=== PATIENT | female | born 1955 | race Caucasian/White ===

== ENCOUNTER 2016-10-29 18:17 | Emergency (ER) | payer OTHER ==
--- NOTE | 2016-10-29 19:06 | DIAGNOSTIC IMAGING REPORT ---
PROCEDURE: XR KNEE 4 VIEWS - RIGHT INDICATION: TRAUMA/INJURY TECHNIQUE: Four views. COMPARISON: None. FINDINGS: Moderate degenerative changes in joint space narrowing of the medial compartment. Osseous structures and joint spaces are otherwise normal. No evidence of effusion. IMPRESSION: 1. Moderate degenerative changes in joint space narrowing of the medial compartment. 2. Otherwise negative right knee.
--- NOTE | 2016-10-29 19:27 | ED NURSING NOTES ---
Clinical Report - Nurses [facility] [address] [place] [address] 10/29/2016 18:17 Patient: ABIGAIL CHERRY TRIAGE Triage time 18:Oct 29 2016. Chief Complaint: INJURY TO RIGHT KNEE. INJURY TO THE RIGHT KNEE. Alert. No acute distress. SEPSIS SCREEN: Sepsis Screen. Negative (no infection suspected/documented). --18:34 Rashi Gupta R.N. 18:27 10/29/16. BP: 128/79. HR: 86. RR: 17. O2 saturation: 97%. Temp: 98.3 F. Pain level now: 04/01. --18:34 Rashi Gupta R.N. Weight: 98.8 kg stated. Height/Length: 62.5 inches Per Patient. BMI: 39.2. --18:31 Rashi Gupta R.N. Medications HCTZ 50mg day. Lisinopril Oral 20 mg, daily. --18:30 Rashi Gupta R.N. TraZODone HCl Oral. --18:31 Rashi Gupta R.N. Medication/allergy information source: the patient. --18:34 Rashi Gupta R.N. Allergies Sensitivity to "pain pills" . --18:30 Rashi Gupta R.N. History Arrived by private vehicle. Historian: patient. Accompanied by friend. This occurred (829 today). Mechanism of injury: [place] going up first step "my friend heard a pop" hx of right knee pain for a year, pcp aware, was seen here for same). 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 PAST MEDICAL HX: Tetanus status: up-to-date. Immunizations: up-to-date. The patient has had a hysterectomy. SOCIAL HX: Smoker- current status unknown. Alcohol use; consumes beer occasionally. No drug use. No infectious disease exposure. ABUSE ASSESSMENT: No report of abuse. SELF HARM ASSESSMENT: A self harm assessment was performed. The patient answered "no" to the question "Have you recently felt down, depressed, or hopeless?", "Have you noticed less interest or pleasure in doing things?", "Do you have thoughts of harming or killing yourself?", "Are you here because you tried to hurt yourself?", "Have you ever tried to hurt yourself before today?", "Have you recently had thoughts about harming or killing others?" and "Do you have any dangerous items in your possession?". FALL RISK ASSESSMENT: Fall risk assessment completed. No fall risk identified. NUTRITIONAL RISK ASSESSMENT: The nutritional risk assessment revealed no deficiencies. FUNCTIONAL ASSESSMENT: Functional assessment: no impairments noted. LEARNING NEEDS ASSESSMENT: The learning needs assessment revealed no barriers. SKIN INTEGRITY ASSESSMENT: Skin integrity risk assessment completed. No skin integrity risk identified. --18:34 Rashi Gupta R.N. PROBLEMS: Sprain. Cancer. Near Syncope. Skin Cancer. Obesity. Thyroid Disease. Tetanus Status. Immunizations. Hypertension. TIA - Transient Ischemic Attack. CVA - Cerebrovascular Accident. Colitis. --18:31 Rashi Gupta R.N. ADDITIONAL SURGERIES: Hysterectomy. Tubal Ligation. --18:31 Rashi Gupta R.N. Interventions ID band on patient. To treatment room. --18:34 Rashi Gupta R.N. PHYSICAL ASSESSMENT To room via wheelchair. Patient gowned. GENERAL / NEURO / PSYCH: Oriented X 4. Alert. Appears in no acute distress. EXTREMITIES: Capillary refill is less than 2 seconds in the extremities. Extremity pulses are within normal limits. Pain with weight bearing. Neuro-vascular status intact to the extremity. Right knee: tenderness. SKIN: Skin intact. Skin is warm and dry. --18:35 Rashi Gupta R.N. NURSING PROGRESS NOTES Neuro-vascular extremity check. Patient gowned. Reassurance given. Patient identifiers checked. Call light placed in reach. Side rails up x 1. Bed placed in lowest position. Brakes of bed on. Patient waiting for evaluation. --18:35 Rashi Gupta R.N. 18:47 10/29/2016 Toradol (Ketorolac Tromethamine) IM 60 mg given. Given in the right gluteus jalen. Allergies verified and confirmed 5 rights. --18:57 Rashi Gupta R.N. Patient waiting for radiology results. --18:58 Rashi Gupta R.N. 19:28 10/29/2016 Hydrocodone-APAP (Hydrocodone-Acetaminophen) PO 5/325 mg Tablets 1 tab given. Allergies verified, confirmed 5 rights and sedative warning given to the patient. --19:41 Vane Phan R.N. <<STRICKEN ENTRY-- Extremities: Neuro-vascular status intact to the extremities. The patient is calm. Overall patient status is improved. GENERAL / NEURO / PSYCH: The patient reports pain that is generalized across the abdomen is still present but improving. Oriented X 4. RESPIRATORY: No respiratory distress. CVS: Capillary refill less than 2 seconds. SKIN: Skin is warm and dry. --19:55 Sheriff Lacey R.N. --END STRIKE>> Charted On Wrong Patient --19:55 Sheriff Lacey R.N. DISPOSITION / DISCHARGE Condition at departure: improved. No learning barriers present. Reviewed medication(s) side effects, precautions, dosing and course information. Prescription(s) given to the patient. Patient verbalized understanding. Written instructions provided in Ukrainian. The patient was discharged home and accompanied by set key driver. She left the Emergency Department ambulatory, via private vehicle and (using a cane). Mutual Fund Sales Agent driving. --20:03 Vane Phan R.N. 20:02 10/29/16. BP: 131/89. HR: 90. RR: 20. O2 saturation: 97%. Temp: deferred. Pain level now: 08/02. 18:27 10/29/16. BP: 128/79. HR: 86. RR: 17. O2 saturation: 97%. Temp: 98.3 F. Pain level now: 04/01. --20:03 Vane Phan R.N. Locked/Released at 10/29/2016 20:04 by Vane Phan R.N.
--- NOTE | 2016-10-29 19:27 | ED CLINICAL REPORT ---
Clinical Report - Physicians/Mid Levels [facility] [address] [place] [address] 10/29/2016 18:17 Patient: ABIGAIL CHERRY Time Seen: 18:22; initial patient contact. Arrived- By private vehicle. Historian- patient. HISTORY OF PRESENT ILLNESS Chief Complaint: Injury to right knee. The injury happened today. Occurred on a street. The patient sustained a twisting injury. Patient is experiencing moderate pain. Patient denies injury to the head or neck. REVIEW OF SYSTEMS The patient complains of pain on weight bearing. She has had swelling. No tingling, weakness, numbness or skin laceration. All systems otherwise negative, except as recorded above. PAST HISTORY ( Sprain. Cancer. Near Syncope. Skin Cancer. Obesity. Thyroid Disease. Hypertension. TIA - Transient Ischemic Attack. CVA - Cerebrovascular Accident. Colitis. SURGERIES: Hysterectomy. Tubal Ligation). SOCIAL HISTORY Smoker - current status unknown. Occasional alcohol use. No drug use. ADDITIONAL NOTES The nursing notes have been reviewed. PHYSICAL EXAM Vital Signs: 10/29/2016 18:27 BP: 128/79. HR: 86. RR: 17. O2 saturation: 97%. Temp: 98.3 F. Pain level now: 10/10. Have been reviewed as normal. Skin: Skin warm. Normal skin color. Extremities: Right knee: moderate tenderness and mild swelling located in the medial joint line. Limited ROM secondary to pain (diminished flexion and extension). Small joint effusion present. Neurovascular intact distally. No ligamentous laxity of the anterior cruciate, posterior cruciate, medial collateral or lateral collateral. No erythema, ecchymosis or deformity. Extremities otherwise negative. Neuro, Vascular and Tendons: Vascular status intact. Sensation intact. Motor intact. Tendon function intact. Gait: Limping gait. Neuro: Oriented X 3. No motor deficit. LABS, X-RAYS, AND EKG Rt Knee X-ray: No fracture. Moderate degenerative joint disease (Medial compartment). Views: AP, lateral and oblique. Technique: good. The X-rays were independently viewed by me and interpreted contemporaneously by me. Prior films were not available for comparison. PROGRESS AND PROCEDURES Disposition: Discharged home in good and improved condition. Condition: good. CLINICAL IMPRESSION Right knee effusion. INSTRUCTIONS Apply ice for 20 minutes five times a day until better. Don't apply ice directly to skin. Your Current Medications: CONTINUE TAKING THE FOLLOWING MEDICATIONS: HCTZ 50mg day*. Lisinopril Oral : 20 mg daily. TraZODone HCl Oral. Prescription Medications: Hydrocodone/APAP 5mg / 325mg: take 1 orally every 6 hours as needed for pain. Dispense fifteen (15). No refill. Diclofenac 50 mg tablets: take 1 tablet orally every 8 hours as needed for pain or stiffness. Dispense thirty (30). No refill. Follow-up: Follow up with your doctor in about two days. Call for an appointment. Blood pressure screening was not performed during this visit because the patient has an active diagnosis of hypertension. (Electronically signed by Demian Villarreal Dr. 10/29/2016 19:29)
--- NOTE | 2016-10-29 19:27 | ED CLINICAL REPORT ---
Clinical Report - Physicians/Mid Levels [facility] [address] [place] [address] 10/29/2016 18:17 Patient: ABIGAIL CHERRY Time Seen: 18:22; initial patient contact. Arrived- By private vehicle. Historian- patient. HISTORY OF PRESENT ILLNESS Chief Complaint: Injury to right knee. The injury happened today. Occurred on a street. The patient sustained a twisting injury. Patient is experiencing moderate pain. Patient denies injury to the head or neck. REVIEW OF SYSTEMS The patient complains of pain on weight bearing. She has had swelling. No tingling, weakness, numbness or skin laceration. All systems otherwise negative, except as recorded above. PAST HISTORY ( Sprain. Cancer. Near Syncope. Skin Cancer. Obesity. Thyroid Disease. Hypertension. TIA - Transient Ischemic Attack. CVA - Cerebrovascular Accident. Colitis. SURGERIES: Hysterectomy. Tubal Ligation). SOCIAL HISTORY Smoker - current status unknown. Occasional alcohol use. No drug use. ADDITIONAL NOTES The nursing notes have been reviewed. PHYSICAL EXAM Vital Signs: 10/29/2016 18:27 BP: 128/79. HR: 86. RR: 17. O2 saturation: 97%. Temp: 98.3 F. Pain level now: 10/10. Have been reviewed as normal. Skin: Skin warm. Normal skin color. Extremities: Right knee: moderate tenderness and mild swelling located in the medial joint line. Limited ROM secondary to pain (diminished flexion and extension). Small joint effusion present. Neurovascular intact distally. No ligamentous laxity of the anterior cruciate, posterior cruciate, medial collateral or lateral collateral. No erythema, ecchymosis or deformity. Extremities otherwise negative. Neuro, Vascular and Tendons: Vascular status intact. Sensation intact. Motor intact. Tendon function intact. Gait: Limping gait. Neuro: Oriented X 3. No motor deficit. LABS, X-RAYS, AND EKG Rt Knee X-ray: No fracture. Moderate degenerative joint disease (Medial compartment). Views: AP, lateral and oblique. Technique: good. The X-rays were independently viewed by me and interpreted contemporaneously by me. Prior films were not available for comparison. PROGRESS AND PROCEDURES Disposition: Discharged home in good and improved condition. Condition: good. CLINICAL IMPRESSION Right knee effusion. INSTRUCTIONS Apply ice for 20 minutes five times a day until better. Don't apply ice directly to skin. Your Current Medications: CONTINUE TAKING THE FOLLOWING MEDICATIONS: HCTZ 50mg day*. Lisinopril Oral : 20 mg daily. TraZODone HCl Oral. Prescription Medications: Hydrocodone/APAP 5mg / 325mg: take 1 orally every 6 hours as needed for pain. Dispense fifteen (15). No refill. Diclofenac 50 mg tablets: take 1 tablet orally every 8 hours as needed for pain or stiffness. Dispense thirty (30). No refill. Follow-up: Follow up with your doctor in about two days. Call for an appointment. Blood pressure screening was not performed during this visit because the patient has an active diagnosis of hypertension. (Electronically signed by Demian Villarreal Dr. 10/29/2016 19:29)
--- NOTE | 2016-10-29 19:27 | ED NURSING NOTES ---
Clinical Report - Nurses [facility] [address] [place] [address] 10/29/2016 18:17 Patient: ABIGAIL CHERRY TRIAGE Triage time 18:Oct 29 2016. Chief Complaint: INJURY TO RIGHT KNEE. INJURY TO THE RIGHT KNEE. Alert. No acute distress. SEPSIS SCREEN: Sepsis Screen. Negative (no infection suspected/documented). --18:34 Rashi Gupta R.N. 18:27 10/29/16. BP: 128/79. HR: 86. RR: 17. O2 saturation: 97%. Temp: 98.3 F. Pain level now: 04/01. --18:34 Rashi Gupta R.N. Weight: 98.8 kg stated. Height/Length: 62.5 inches Per Patient. BMI: 39.2. --18:31 Rashi Gupta R.N. Medications HCTZ 50mg day. Lisinopril Oral 20 mg, daily. --18:30 Rashi Gupta R.N. TraZODone HCl Oral. --18:31 Rashi Gupta R.N. Medication/allergy information source: the patient. --18:34 Rashi Gupta R.N. Allergies Sensitivity to "pain pills" . --18:30 Rashi Gupta R.N. History Arrived by private vehicle. Historian: patient. Accompanied by friend. This occurred (829 today). Mechanism of injury: [place] going up first step "my friend heard a pop" hx of right knee pain for a year, pcp aware, was seen here for same). 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 PAST MEDICAL HX: Tetanus status: up-to-date. Immunizations: up-to-date. The patient has had a hysterectomy. SOCIAL HX: Smoker- current status unknown. Alcohol use; consumes beer occasionally. No drug use. No infectious disease exposure. ABUSE ASSESSMENT: No report of abuse. SELF HARM ASSESSMENT: A self harm assessment was performed. The patient answered "no" to the question "Have you recently felt down, depressed, or hopeless?", "Have you noticed less interest or pleasure in doing things?", "Do you have thoughts of harming or killing yourself?", "Are you here because you tried to hurt yourself?", "Have you ever tried to hurt yourself before today?", "Have you recently had thoughts about harming or killing others?" and "Do you have any dangerous items in your possession?". FALL RISK ASSESSMENT: Fall risk assessment completed. No fall risk identified. NUTRITIONAL RISK ASSESSMENT: The nutritional risk assessment revealed no deficiencies. FUNCTIONAL ASSESSMENT: Functional assessment: no impairments noted. LEARNING NEEDS ASSESSMENT: The learning needs assessment revealed no barriers. SKIN INTEGRITY ASSESSMENT: Skin integrity risk assessment completed. No skin integrity risk identified. --18:34 Rashi Gupta R.N. PROBLEMS: Sprain. Cancer. Near Syncope. Skin Cancer. Obesity. Thyroid Disease. Tetanus Status. Immunizations. Hypertension. TIA - Transient Ischemic Attack. CVA - Cerebrovascular Accident. Colitis. --18:31 Rashi Gupta R.N. ADDITIONAL SURGERIES: Hysterectomy. Tubal Ligation. --18:31 Rashi Gupta R.N. Interventions ID band on patient. To treatment room. --18:34 Rashi Gupta R.N. PHYSICAL ASSESSMENT To room via wheelchair. Patient gowned. GENERAL / NEURO / PSYCH: Oriented X 4. Alert. Appears in no acute distress. EXTREMITIES: Capillary refill is less than 2 seconds in the extremities. Extremity pulses are within normal limits. Pain with weight bearing. Neuro-vascular status intact to the extremity. Right knee: tenderness. SKIN: Skin intact. Skin is warm and dry. --18:35 Rashi Gupta R.N. NURSING PROGRESS NOTES Neuro-vascular extremity check. Patient gowned. Reassurance given. Patient identifiers checked. Call light placed in reach. Side rails up x 1. Bed placed in lowest position. Brakes of bed on. Patient waiting for evaluation. --18:35 Rashi Gupta R.N. 18:47 10/29/2016 Toradol (Ketorolac Tromethamine) IM 60 mg given. Given in the right gluteus jalen. Allergies verified and confirmed 5 rights. --18:57 Rashi Gupta R.N. Patient waiting for radiology results. --18:58 Rashi Gupta R.N. 19:28 10/29/2016 Hydrocodone-APAP (Hydrocodone-Acetaminophen) PO 5/325 mg Tablets 1 tab given. Allergies verified, confirmed 5 rights and sedative warning given to the patient. --19:41 Vane Phan R.N. <<STRICKEN ENTRY-- Extremities: Neuro-vascular status intact to the extremities. The patient is calm. Overall patient status is improved. GENERAL / NEURO / PSYCH: The patient reports pain that is generalized across the abdomen is still present but improving. Oriented X 4. RESPIRATORY: No respiratory distress. CVS: Capillary refill less than 2 seconds. SKIN: Skin is warm and dry. --19:55 Sheriff Lacey R.N. --END STRIKE>> Charted On Wrong Patient --19:55 Sheriff Lacey R.N. DISPOSITION / DISCHARGE Condition at departure: improved. No learning barriers present. Reviewed medication(s) side effects, precautions, dosing and course information. Prescription(s) given to the patient. Patient verbalized understanding. Written instructions provided in Arabic. The patient was discharged home and accompanied by risk modeler. She left the Emergency Department ambulatory, via private vehicle and (using a cane). Director Of Revenue Cycle Management driving. --20:03 Vane Phan R.N. 20:02 10/29/16. BP: 131/89. HR: 90. RR: 20. O2 saturation: 97%. Temp: deferred. Pain level now: 08/02. 18:27 10/29/16. BP: 128/79. HR: 86. RR: 17. O2 saturation: 97%. Temp: 98.3 F. Pain level now: 04/01. --20:03 Vane Phan R.N. Locked/Released at 10/29/2016 20:04 by Vane Phan R.N.
--- NOTE | 2016-10-29 19:27 | ED ORDER SUMMARY ---
..... Patient: ABIGAIL CHERRY OrderSheet [facility] VisitID: [id number] [address] [place] [address] 61y, F Registration Date/Time: 10/29/2016 ORDER SHEET Weight: 98.8 kg (stated) Allergies: Sensitivity to "pain pills" GENERAL ORDERS: Knee 4V Right Urgent (18:40 10/29/2016 Manuel Clayton) (Ack 18:45 Rosanna) (18:58 KPage-Kuchan R.N.) MEDICATION ORDERS: Toradol IM 60 mg (NOW) (18:40 10/29/2016 Manuel Clayton) (Ack 18:40 KPage-Kuchan R.N.) (18:57 KPage-Kuchan R.N.) Hydrocodone-APAP PO 5/325 mg (NOW, HIGH ALERT MEDICATION) (19:25 10/29/2016 Manuel Clayton) (Ack 19:27 SRoberts R.N.) (19:41 SRoberts R.N.) IV FLUIDS: ORDER SHEET NOTES: [Electronically signed by Demian Villarreal Dr. (19:29 10/29/2016)] [Electronically signed by Vane Phan R.N. (20:04 10/29/2016)] [Electronically locked/signed by Vane Phan R.N. (20:04 10/29/2016)]
--- NOTE | 2016-10-29 19:27 | ED ORDER SUMMARY ---
..... Patient: ABIGAIL CHERRY OrderSheet [facility] VisitID: [id number] [address] [place] [address] 61y, F Registration Date/Time: 10/29/2016 ORDER SHEET Weight: 98.8 kg (stated) Allergies: Sensitivity to "pain pills" GENERAL ORDERS: Knee 4V Right Urgent (18:40 10/29/2016 Manuel Clayton) (Ack 18:45 Rosanna) (18:58 KPage-Kuchan R.N.) MEDICATION ORDERS: Toradol IM 60 mg (NOW) (18:40 10/29/2016 Manuel Clayton) (Ack 18:40 KPage-Kuchan R.N.) (18:57 KPage-Kuchan R.N.) Hydrocodone-APAP PO 5/325 mg (NOW, HIGH ALERT MEDICATION) (19:25 10/29/2016 Manuel Clayton) (Ack 19:27 SRoberts R.N.) (19:41 SRoberts R.N.) IV FLUIDS: ORDER SHEET NOTES: [Electronically signed by Demian Villarreal Dr. (19:29 10/29/2016)] [Electronically signed by Vane Phan R.N. (20:04 10/29/2016)] [Electronically locked/signed by Vane Phan R.N. (20:04 10/29/2016)]
--- NOTE | 2016-10-29 20:04 | ED MAR SUMMARY ---
..... Medication Administration Record [facility] [address] [place] [address] Patient: ABIGAIL CHERRY Visit ID: [id number] 61y, F Weight: 98.8 kg Height/Length: 62.5 in BMI: 39.2 ALLERGIES: Sensitivity to "pain pills" Given 18:47 10/29/2016 Rashi Gupta RBrenda Medication Administered: TORADOL [IM] (KETOROLAC TROMETHAMINE), Dose: 60 mg IM. Medication Ordered: Toradol IM 60 mg (NOW). Given 19:28 10/29/2016 Vane Phan RBrenda Medication Administered: HYDROCODONE-APAP [PO] (HYDROCODONE-ACETAMINOPHEN), Dose: 1 tab 5/325 mg Tablets PO. Medication Ordered: Hydrocodone-APAP PO 5/325 mg (NOW, HIGH ALERT MEDICATION).
--- NOTE | 2016-10-29 20:04 | ED MED RECONCILIATION SUMMARY ---
Patient: ABIGAIL CHERRY Medication Reconciliation Report [facility]erg[facility] VisitID: [id number] [address] [place] [address] 61y, F Registration Date/Time: 10/29/2016 Weight: 98.8 kg Height/Length: 60 in. BMI: 39.2 ALLERGIES: Sensitivity to "pain pills" The patient's Home Medications are listed below: CONTINUE TAKING THE FOLLOWING MEDICATIONS: HCTZ 50mg day Lisinopril Oral 20 mg, daily TraZODone HCl Oral The source(s) of the original Home Medication information: patient The following Medications were given to the patient in the Emergency Department: Toradol [IM] IM 60 mg, administered: 10/29/2016 6:47:00 PM Hydrocodone-APAP [PO] PO 1 tab, administered: 10/29/2016 7:28:00 PM The following Medications were prescribed to the patient: Hydrocodone/APAP 5mg / 325mg: take 1 orally every 6 hours as needed for pain. Dispense fifteen (15). No refill. -- Demian Villarreal Dr. Diclofenac 50 mg tablets: take 1 tablet orally every 8 hours as needed for pain or stiffness. Dispense thirty (30). No refill. -- Demian Villarreal Dr.
--- NOTE | 2016-10-29 20:04 | ED MAR SUMMARY ---
..... Medication Administration Record [facility] [address] [place] [address] Patient: ABIGAIL CHERRY Visit ID: [id number] 61y, F Weight: 98.8 kg Height/Length: 62.5 in BMI: 39.2 ALLERGIES: Sensitivity to "pain pills" Given 18:47 10/29/2016 Rashi Gupta RBrenda Medication Administered: TORADOL [IM] (KETOROLAC TROMETHAMINE), Dose: 60 mg IM. Medication Ordered: Toradol IM 60 mg (NOW). Given 19:28 10/29/2016 Vane Phan RBrenda Medication Administered: HYDROCODONE-APAP [PO] (HYDROCODONE-ACETAMINOPHEN), Dose: 1 tab 5/325 mg Tablets PO. Medication Ordered: Hydrocodone-APAP PO 5/325 mg (NOW, HIGH ALERT MEDICATION).
--- NOTE | 2016-10-29 20:04 | ED MED RECONCILIATION SUMMARY ---
Patient: ABIGAIL CHERRY Medication Reconciliation Report [facility] VisitID: [id number] [address] [place] [address] 61y, F Registration Date/Time: 10/29/2016 Weight: 98.8 kg Height/Length: 60 in. BMI: 39.2 ALLERGIES: Sensitivity to "pain pills" The patient's Home Medications are listed below: CONTINUE TAKING THE FOLLOWING MEDICATIONS: HCTZ 50mg day Lisinopril Oral 20 mg, daily TraZODone HCl Oral The source(s) of the original Home Medication information: patient The following Medications were given to the patient in the Emergency Department: Toradol [IM] IM 60 mg, administered: 10/29/2016 6:47:00 PM Hydrocodone-APAP [PO] PO 1 tab, administered: 10/29/2016 7:28:00 PM The following Medications were prescribed to the patient: Hydrocodone/APAP 5mg / 325mg: take 1 orally every 6 hours as needed for pain. Dispense fifteen (15). No refill. -- Demian Villarreal Dr. Diclofenac 50 mg tablets: take 1 tablet orally every 8 hours as needed for pain or stiffness. Dispense thirty (30). No refill. -- Demian Villarreal Dr.
--- NOTE | 2016-10-29 20:04 | ED DISCHARGE INSTRUCTIONS ---
Patient: ABIGAIL CHERRY General Instructions [facility] VisitID: [id number] [place] [address] 61y, F Registration Date/Time: 10/29/2016 Right knee effusion. INSTRUCTIONS Apply ice for 20 minutes five times a day until better. Don't apply ice directly to skin. Your Current Medications: CONTINUE TAKING THE FOLLOWING MEDICATIONS: HCTZ 50mg day*. Lisinopril Oral : 20 mg daily. TraZODone HCl Oral. Prescription Medications: Hydrocodone/APAP 5mg / 325mg: take 1 orally every 6 hours as needed for pain. Dispense fifteen (15). No refill. Diclofenac 50 mg tablets: take 1 tablet orally every 8 hours as needed for pain or stiffness. Dispense thirty (30). No refill. Follow-up: Follow up with your doctor in about two days. Call for an appointment. Blood pressure screening was not performed during this visit because the patient has an active diagnosis of hypertension. ADDITIONAL INFORMATION Knee Pain, Possible Torn Meniscus Themeniscusis a tough cartilage pad that cushions the inside of the knee joint. It serves as a shock absorber and spreads the weight of your body evenly across the knee joint. This prevents excess wear and tear to the bones of that joint. The most common causes of meniscal tears are due to injury (especially related to sports) and degenerative disease (as occurs with aging). A meniscus tear commonly occurs during a twisting injury when the knee is bent. This causes pain, swelling, reduced movement of the knee and difficulty walking. There may be popping, clicking, joint locking or inability to completely straighten the knee. Ligaments of the knee may also be injured. Initial diagnosis of a torn meniscus is by physical exam and x-rays. In the case of an acute injury, the knee may be too painful to examine fully. A more accurate exam can be performed after the initial swelling goes down. An MRI (magnetic image scan) may be ordered to make a final diagnosis. Initial treatment of a suspected meniscal injury is with ice and rest and preventing movement of the knee. A splint or Velcro knee immobilizer may be applied to protect the joint. Depending on the severity of the injury, surgery may be required. A cartilage injury may take 4-12 weeks to heal depending on the severity. Home Care: Stay off the injured leg as much as possible until you can walk on it without pain. If you have a lot of pain with walking, crutches or a walker may be prescribed. (These can be rented or purchased at many pharmacies and surgical or orthopedic supply stores). Follow your doctor's advice regarding when to begin bearing weight on that leg. Keep your leg elevated to reduce pain and swelling. When sleeping, place a pillow under the injured leg. When sitting, support the injured leg so it is level with your waist. This is very important during the first 48 hours. Apply an ice pack (ice cubes in a plastic bag, wrapped in a towel) over the injured area for 20 minutes every 1-2 hours the first day. You can place the ice pack directly over the splint. If a Velcro knee immobilizer was applied, you can open this to apply the ice pack directly to the knee. Continue with ice packs 3-4 times a day for the next two days, then as needed for the relief of pain and swelling. You may use acetaminophen (Tylenol) or ibuprofen (Motrin, Advil) to control pain, unless another pain medicine was prescribed. [NOTE: If you have chronic liver or kidney disease or ever had a stomach ulcer, talk with your doctor before using these medicines.] If you were given a splint, keep it completely dry at all times. Bathe with your splint out of the water, protected with a large plastic bag, rubber-banded at the top end. If a fiberglass splint gets wet, you can dry it with a hair-dryer. If you have a Velcro knee immobilizer, you can remove this to bathe, unless told otherwise. Check with your doctor before returning to sports or full work duties. Follow Up with your doctor, or as advised, within 1-2 weeks for another exam. Further testing may be required to assess the extent of your injury. [NOTE: If X-rays were taken, they will be reviewed by a radiologist. You will be notified of any new findings that may affect your care.] Get Prompt Medical Attention if any of the following occur: Toes or foot becomes swollen, cold, blue, numb or tingly Pain or swelling increases over the knee or calf Warmth or redness appears over the knee or calf Shortness of breath or chest pain Fever over 100.4F (38.0C) Hydrocodone Bitartrate, Acetaminophen Oral tablet What is this medicine? ACETAMINOPHEN; HYDROCODONE (a set a ELI glory fen; koby droe KOE done) is a pain reliever. It is used to treat mild to moderate pain. How should I use this medicine? Take this medicine by mouth. Swallow it with a full glass of water. Follow the directions on the prescription label. If the medicine upsets your stomach, take the medicine with food or milk. Do not take more than you are told to take. Talk to your hospital insurance representative regarding the use of this medicine in children. This medicine is not approved for use in children. What side effects may I notice from receiving this medicine? Side effects that you should report to your doctor or health medicare compliance auditor as soon as possible: allergic reactions like skin rash, itching or hives, swelling of the face, lips, or tongue breathing problems confusion feeling faint or lightheaded, falls stomach pain yellowing of the eyes or skin Side effects that usually do not require medical attention (report to your doctor or health medicare compliance auditor if they continue or are bothersome): nausea, vomiting stomach upset What may interact with this medicine? alcohol antihistamines isoniazid medicines for depression, anxiety, or psychotic disturbances medicines for sleep muscle relaxants naltrexone narcotic medicines (opiates) for pain phenobarbital ritonavir tramadol What if I miss a dose? If you miss a dose, take it as soon as you can. If it is almost time for your next dose, take only that dose. Do not take double or extra doses. Where should I keep my medicine? Keep out of the reach of children. This medicine can be abused. Keep your medicine in a safe place to protect it from theft. Do not share this medicine with anyone. Selling or giving away this medicine is dangerous and against the law. Store at room temperature between 15 and 30 degrees C (59 and 86 degrees F). Protect from light. Keep container tightly closed. Throw away any unused medicine after the expiration date. Discard unused medicine and used packaging carefully. Pets and children can be harmed if they find used or lost packages. What should I tell my health care provider before I take this medicine? They need to know if you have any of these conditions: brain tumor Crohn's disease, inflammatory bowel disease, or ulcerative colitis drink more than 3 alcohol-containing drinks per day drug abuse or addiction head injury heart or circulation problems kidney disease or problems going to the bathroom liver disease lung disease, asthma, or breathing problems an unusual or allergic reaction to acetaminophen, hydrocodone, other opioid analgesics, other medicines, foods, dyes, or preservatives or trying to get breast-feeding What should I watch for while using this medicine? Tell your doctor or health medicare compliance auditor if your pain does not go away, if it gets worse, or if you have new or a different type of pain. You may develop tolerance to the medicine. Tolerance means that you will need a higher dose of the medicine for pain relief. Tolerance is normal and is expected if you take the medicine for a long time. Do not suddenly stop taking your medicine because you may develop a severe reaction. Your body becomes used to the medicine. This does NOT mean you are addicted. Addiction is a behavior related to getting and using a drug for a non-medical reason. If you have pain, you have a medical reason to take pain medicine. Your doctor will tell you how much medicine to take. If your doctor wants you to stop the medicine, the dose will be slowly lowered over time to avoid any side effects. You may get drowsy or dizzy when you first start taking the medicine or change doses. Do not drive, use machinery, or do anything that may be dangerous until you know how the medicine affects you. Stand or sit up slowly. There are different types of narcotic medicines (opiates) for pain. If you take more than one type at the same time, you may have more side effects. Give your health care provider a list of all medicines you use. Your doctor will tell you how much medicine to take. Do not take more medicine than directed. Call emergency for help if you have problems breathing. The medicine will cause constipation. Try to have a bowel movement at least every 2 to 3 days. If you do not have a bowel movement for 3 days, call your doctor or health medicare compliance auditor. Too much acetaminophen can be very dangerous. Do not take Tylenol (acetaminophen) or medicines that contain acetaminophen with this medicine. Many non-prescription medicines contain acetaminophen. Always read the labels carefully. You have been given the following additional information: Knee Pain, Meniscus Injury (Possible) Hydrocodone Bitartrate, Acetaminophen Oral tablet (Electronically signed by Demian Villarreal Dr. 10/29/2016 19:29)
== END 2016-10-29 20:00 | disposition home or self-care (01) ==
LOC: ED SRH 18:17
DX: M25.461 Effusion, right knee (principal); X58.XXXA Exposure to other specified factors, initial encounter; E07.9 Disorder of thyroid, unspecified; I10 Essential (primary) hypertension; Z86.73 Personal history of transient ischemic attack (TIA), and cerebral infarction without residual deficits